=== PATIENT | female | born 1990 | race Caucasian/White ===

== ENCOUNTER → 2016-03-28 | Emergency (ER) | payer OTHER ==
[2016-03-28 16:54] VITALS: BMI 18.3
[2016-03-28 18:20] LABS: BASOPHIL 0.5 % (0-2.0); EOSINOPHIL 0.8 % (0-4.5); MCH 27.8 pg (25.7-33.7); MCHC 31.9 g/dl (32.0-36.0); MEAN CELL VOLUME 87.2 fl (80-96); MEAN PLT VOLUME 8.9 fl (7.5-11.1); NEUTROPHILS 70.9 % (42.8-82.8); PLATELET COUNT 277 K/MM3 (134-434); RDW 13.8 % (11.6-15.6); WHITE BLOOD COUNT 13.1 K/mm3 (4.0-10.0)
[2016-03-28 18:23] LABS: URINE APPEARANCE CLEAR; URINE BILIRUBIN NEGATIVE (NEGATIVE); URINE COLOR YELLOW; URINE GLUCOSE (UA) NEGATIVE (NEGATIVE); URINE KETONE 1+ (NEGATIVE); URINE LEUK ESTERASE NEGATIVE (NEGATIVE); URINE NITRITE NEGATIVE (NEGATIVE); URINE PROTEIN NEGATIVE (NEGATIVE); URINE UROBILINOGEN 2.0 E.U/dl E.U./dl (0.2-1.0)
[2016-03-28 18:27] LABS: URINE BLOOD 2+ (NEGATIVE)
[2016-03-28 18:28] LABS: URINE HYALINE CAST 1 /lpf; URINE MUCUS FEW; URINE RBC 3 /hpf (0-3); URINE WBC 2 /hpf (3-5)
--- NOTE | 2016-03-28 19:17 | PDOC ---
History of Present Illness - History of Present Illness Initial Comments: 03/28/16 19:17 Patient is a 26 year old female (LNMP: 02/19/16), G4,P2,A1, who is presenting to the ED with brown discharge since today. The patient reports she s been having increased brown and red discharge on her pad. The patient also complains of mild RLQ abdominal cramping. She recently had a positive test. Denies fever, chills, nausea, vomiting, diarrhea. Allergies: Shellfish Other PMH: right breast benign tumor removal, nasal polyp removal <Shanika Sherwood - Last Filed: 03/28/16 21:36> <Gisel Gaitan - Last Filed: 03/28/16 21:48> - General Chief Complaint: Vaginal Bleeding Stated Complaint: 5WKS/VAGINAL BLEEDING/BACK PAIN Time Seen by Provider: 03/28/16 17:41 Past History <Shanika Sherwood - Last Filed: 03/28/16 21:36> - Past Medical History Diabetes: Yes (GESTATIONAL) - Reproductive History Is Patient Now?: Yes (#): 4 Para: 2 Therapeutic (s) & number: Yes (1) - Psycho/Social/Smoking Cessation Hx Suicidal Ideation: No Smoking History: Never smoked Information on smoking cessation initiated: No <Gisel Gaitan - Last Filed: 03/28/16 21:48> - Past Medical History Allergies/Adverse Reactions: Allergies Allergy/AdvReac Type Severity Reaction Status Date / Time shellfish derived Allergy Verified 03/28/16 16:54 Home Medications: Ambulatory Orders NK [No Known Home Medication] 03/28/16 Review of Systems - Review of Systems Comments:: 03/28/16 19:19 CONSTITUTIONAL: Absent: fever, chills, diaphoresis, generalized weakness, malaise, loss of appetite HEENT: Absent: rhinorrhea, nasal congestion, throat pain, throat swelling, difficulty swallowing, mouth swelling, ear pain, eye pain, visual changes CARDIOVASCULAR: Absent: chest pain, syncope, palpitations, irregular heart rate, lightheadedness , peripheral edema RESPIRATORY: Absent: cough, shortness of breath, dyspnea with exertion, orthopnea, wheezing, stridor, hemoptysis GASTROINTESTINAL: Present: RLQ cramping Absent: abdominal distension, nausea, vomiting, diarrhea, constipation, melena, hematochezia GENITOURINARY: Present: vaginal spotting Absent: dysuria, frequency, urgency, hesitancy, hematuria, flank pain, genital pain MUSCULOSKELETAL: Absent: myalgia, arthralgia, joint swelling SKIN: Absent: rash, itching, pallor HEMATOLOGIC/IMMUNOLOGIC: Absent: easy bleeding, easy bruising, lymphadenopathy, frequent infections ENDOCRINE: Absent: unexplained weight gain, unexplained weight loss, heat intolerance, cold intolerance NEUROLOGIC: Absent: headache, focal weakness or paresthesia, dizziness, unsteady gait, seizure, mental status changes, bladder or bowel incontinence. PSYCHIATRIC: Absent: anxiety, depression, suicidal or homicidal ideation, hallucinations <PresleyShanika - Last Filed: 03/28/16 21:36> *Physical Exam - Vital Signs Last Vital Signs Temp Pulse Resp BP Pulse Ox 98 F 95 H 18 137/72 100 03/28/16 16:51 03/28/16 16:51 03/28/16 16:51 03/28/16 16:51 03/28/16 16:51 - Physical Exam Comments: 03/28/16 19:20 GENERAL: Well developed, well nourished. Awake and alert. No acute distress. HEENT: Normocephalic, atraumatic. PERRLA, EOMI. No conjunctival pallor. Sclera are non- icteric. Moist mucous membranes. Oropharynx is clear. NECK: Supple. Full ROM. No JVD. Carotid pulses 2+ and symmetric, without bruits. No thyromegaly. No lymphadenopathy. CARDIOVASCULAR: Regular rate and rhythm. No murmurs, rubs, or gallops. Distal pulses are 2+ and symmetric. PULMONARY: No evidence of respiratory distress. Lungs clear to auscultation bilaterally. No wheezing, rales or rhonchi. ABDOMINAL: Soft. Non-tender. Non-distended. No rebound or guarding. No organomegaly. Normoactive bowel sounds. MUSCULOSKELETAL: Normal range of motion at all joints. No bony deformities or tenderness. No CVA tenderness. EXTREMITIES: No cyanosis. No clubbing. No edema. No calf tenderness. SKIN: Warm and dry. Normal capillary refill. No rashes. No jaundice. NEUROLOGICAL: Alert, awake, appropriate. Cranial nerves 2-12 intact. Normal speech. Gait is normal without ataxia. PSYCHIATRIC: Cooperative. Good eye contact. Appropriate mood and affect. <Shanika Sherwood - Last Filed: 03/28/16 21:36> - Vital Signs Last Vital Signs Temp Pulse Resp BP Pulse Ox 98 F 95 H 18 137/72 100 03/28/16 16:51 03/28/16 16:51 03/28/16 16:51 03/28/16 16:51 03/28/16 16:51 <ArnieGisel - Last Filed: 03/28/16 21:48> ED Treatment Course - LABORATORY CBC & Chemistry Diagram: 03/28/16 18:09 - ADDITIONAL ORDERS Additional order review: Laboratory Results 03/28/16 17:30 Urine Color Yellow Urine Appearance Clear Urine pH 5.0 Ur Specific [place] 1.029 Urine Protein Negative Urine Glucose (UA) Negative Urine Ketones 1+ H Urine Blood 2+ H Urine Nitrite Negative Urine Bilirubin Negative Urine Urobilinogen 2.0 e.u/dl H Ur Leukocyte Esterase Negative Urine RBC 3 Urine WBC 2 Ur Epithelial Cells Rare Hyaline Casts 1 Urine Mucus Few 03/28/16 18:09 RBC 5.02 MCV 87.2 MCHC 31.9 L RDW 13.8 MPV 8.9 Neutrophils % 70.9 Lymphocytes % 23.9 Monocytes % 3.9 Eosinophils % 0.8 Basophils % 0.5 - RADIOLOGY Radiograph Interpretation: 03/28/16 21:36 Transvaginal US Impression: Single intrauterine gestational sac with likely a pole identified consistent with 6 weeks of gestation. No heart activity was visualized or could be documented. Findings are suggestive of demise. Correlation with serial quantitative serum beta hCG and follow-up ultrasound is needed. Reported By: Milad French MD <Shanika Sherwood - Last Filed: 03/28/16 21:36> - LABORATORY CBC & Chemistry Diagram: 03/28/16 18:09 - ADDITIONAL ORDERS Additional order review: Laboratory Results 03/28/16 17:30 Urine Color Yellow Urine Appearance Clear Urine pH 5.0 Ur Specific [place] 1.029 Urine Protein Negative Urine Glucose (UA) Negative Urine Ketones 1+ H Urine Blood 2+ H Urine Nitrite Negative Urine Bilirubin Negative Urine Urobilinogen 2.0 e.u/dl H Ur Leukocyte Esterase Negative Urine RBC 3 Urine WBC 2 Ur Epithelial Cells Rare Hyaline Casts 1 Urine Mucus Few 03/28/16 18:09 RBC 5.02 MCV 87.2 MCHC 31.9 L RDW 13.8 MPV 8.9 Neutrophils % 70.9 Lymphocytes % 23.9 Monocytes % 3.9 Eosinophils % 0.8 Basophils % 0.5 <Gisel Gaitan - Last Filed: 03/28/16 21:48> *DC/Admit/Observation/Transfer - Attestations Scribe Attestion: 03/28/16 19:20 Documentation prepared by Shanika Sherwood, acting as medical affairs specialist for Gisel Gaitan MD. <Shanika Sherwood - Last Filed: 03/28/16 21:36> <Gisel Gaitan - Last Filed: 03/28/16 21:48> Diagnosis at time of Disposition: Threatened in early - Discharge Dispostion Disposition: HOME Condition at time of disposition: Stable - Patient Instructions Printed Discharge Instructions: DI for Threatened Additional Instructions: please see your loading dock helper this week Your ultrasound shows a single intrauterine gestational sac with a likely pole consistent with 6 weeks of gestation. No heart sounds were seen. Findings are suggestive of demise. Please have a repeat BHCG and PELVIC US in 48 hours
[2016-03-28 21:59] VITALS: BP 135/80; PULSE 87; TEMP 98.3
== END | disposition home or self-care (01) ==
LOC: JER 16:48
DX: O20.0 Threatened abortion (principal); Z3A.01 Less than 8 weeks gestation of pregnancy
CPT/HCPCS: 36415; 76817-TC; 81003; 81015; 84702; 85025; 86850; 86900; 86901; 99283-25